=== PATIENT | male | born 1975 | race Caucasian/White ===

== ENCOUNTER 2017-09-20 10:22 | Emergency (ER) | payer MEDICARE ==
[~2017-09-20] VITALS: Ht 182.8 cm; Wt 104.3 kg
[~2017-09-20 10:22] MED LIST: DAYPRO600 M1 PO; HYDROCODONE BIT1 T11 PO; ROBAXIN750 MG PO
[2017-09-20] MEDS ORDERED: CEPHALEXIN500 M1 PO (11:41)
[2017-09-20] MEDS ORDERED: NORCO 5-325 TA1 EACH PO (11:45)
== END 2017-09-20 11:50 | disposition home or self-care (01) ==
LOC: ED 10:22
DX: T25.232A Burn of second degree of left toe(s) (nail), initial encounter (principal); F17.200 Nicotine dependence, unspecified, uncomplicated; Z91.030 Bee allergy status; Z88.6 Allergy status to analgesic agent; Z88.0 Allergy status to penicillin; Z91.040 Latex allergy status; Z88.8 Allergy status to other drugs, medicaments and biological substances; X10.2XXA Contact with fats and cooking oils, initial encounter; Y93.89 Activity, other specified; Y92.89 Other specified places as the place of occurrence of the external cause; Y99.8 Other external cause status

== ENCOUNTER → 2017-09-25 | Outpatient (CLI) | payer MEDICARE ==
[~2017-09-25] MED LIST changes: +CEPHALEXIN500 M1 PO; +NORCO 5-325 TA1 EACH PO
== END | disposition home or self-care (01) ==
LOC: WOUNDCARE 00:37
DX: T25.032A Burn of unspecified degree of left toe(s) (nail), initial encounter (principal); T31.0 Burns involving less than 10% of body surface; F17.200 Nicotine dependence, unspecified, uncomplicated; X08.8XXD Exposure to other specified smoke, fire and flames, subsequent encounter